=== PATIENT | female | born 1985 | race Caucasian/White ===

== ENCOUNTER 2022-09-10 14:30 | Emergency (ER) | payer MEDICAID ==
[~2022-09-10] VITALS: Ht 165.1 cm; Wt 147.4 kg
--- NOTE | 2022-09-10 14:35 | NUR ---
BIBS STATING THAT SHE STARTED TO TAKE LAMICTAL YESTERDAY AND EXPERIENCING HIGH BLOOD PRESSURE AND HEADACHES
[2022-09-10] MEDS ORDERED: OMEP40CA21 PO (17:24)
[2022-09-10] MEDS ORDERED: FERR325T30 PO (17:24)
[2022-09-10] MEDS ORDERED: ALBU18HF2 INH (17:24)
[2022-09-10] MEDS ORDERED: BUDE10.22 INH (17:24)
--- NOTE | 2022-09-10 17:42 | NUR ---
Patient discharged to home in stable condition. Written and verbal after care instructions given. Patient verbalizes understanding of instruction.
[2022-09-10 17:43] VITALS: BP 151/81
== END 2022-09-10 17:43 | disposition home or self-care (01) ==
LOC: ER 14:32
DX: R03.0 Elevated blood-pressure reading, without diagnosis of hypertension (principal); J45.909 Unspecified asthma, uncomplicated; K21.9 Gastro-esophageal reflux disease without esophagitis; Z98.890 Other specified postprocedural states; Z79.899 Other long term (current) drug therapy

== ENCOUNTER 2022-09-19 12:36 | Emergency (ER) | payer MEDICAID ==
[~2022-09-19] VITALS: Ht 165.1 cm; Wt 204.1 kg
[~2022-09-19 12:36] MED LIST: ALBU18HF2 INH; BUDE10.22 INH; FERR325T30 PO; OMEP40CA21 PO
--- NOTE | 2022-09-19 12:50 | NUR ---
Pt walked into ER c/o headache, bilat hand rash x 3 weeks after taking lamictal, sent by pmd for further eval. Pt ambulated to room with steady gait. connected to monitor. vss. [id number]. awaiting for md mcpherson.
--- NOTE | 2022-09-19 13:11 | NUR ---
PA STUDENT AT BEDSIDE.
--- NOTE | 2022-09-19 14:05 | NUR ---
CALLED DR. MINE SANTOS [phone] LEFT VM
[2022-09-19 14:29] LABS: BASOPHILS # (AUTO) 0.1 K/uL (0.0-0.2); BASOPHILS % (AUTO) 0.6 % (0.0-2.0); EOSINOPHILS % (AUTO) 3.7 % (0.0-6.0); HEMATOCRIT 34 % (33-45); HEMOGLOBIN 10.3 g/dL (11.5-14.8); LYMPHOCYTES # (AUTO) 2.4 K/uL (0.8-4.8); LYMPHOCYTES % (AUTO) 21.9 % (20.0-44.0); MEAN CORPUSCULAR HGB CONC 30 g/dl (31.0-36.0); MEAN CORPUSCULAR VOLUME 74 fL (82-100); MONOCYTES # (AUTO) 0.7 K/uL (0.1-1.30); MONOCYTES % (AUTO) 6.5 % (2.0-12.0); NEUTROPHILS # (AUTO) 7.4 K/uL (1.8-8.9); NEUTROPHILS % (AUTO) 67.3 % (43.0-81.0); PLATELET COUNT (AUTO) 493 K/uL (150-450); RED BLOOD CELL COUNT(AUTO) 4.65 MIL/uL (4.0-5.2); WHITE BLOOD COUNT (AUTO) 11.1 K/uL (4.3-11.0)
[2022-09-19 14:53] LABS: CALCIUM, SERUM 8.5 mg/dL (8.5-10.1); CREATININE 0.7 mg/dL (0.6-1.3); POTASSIUM 3.8 mmol/L (3.5-5.1)
[2022-09-19 15:36] LABS: EOSINOPHILS % (MANUAL) 3 % (0-4); LYMPHOCYTES % (MANUAL) 27 % (16-48); MONOCYTES % (MANUAL) 5 % (0-11.0); NEUTROPHILS % (MANUAL) 64 (42-76); REACTIVE LYMPHOCYTES 1 % (0-0)
[2022-09-19 17:13] LABS: BILIRUBIN,TOTAL 0.1 mg/dL (0.2-1.0); TOTAL PROTEIN, SERUM 7.7 g/dL (6.4-8.2)
--- NOTE | 2022-09-19 17:29 | NUR ---
Patient discharged to home in stable condition. Written and verbal after care instructions given. Patient verbalizes understanding of instruction.
[2022-09-19 17:44] VITALS: BP 142/77
== END 2022-09-19 17:45 | disposition home or self-care (01) ==
LOC: ER 12:44
DX: R21 Rash and other nonspecific skin eruption (principal); R03.0 Elevated blood-pressure reading, without diagnosis of hypertension; J45.909 Unspecified asthma, uncomplicated; K21.9 Gastro-esophageal reflux disease without esophagitis; F32.A Depression, unspecified
CPT/HCPCS: 36415; 80053-TC; 84702-TC; 85025-TC